=== PATIENT | male | born 1965 | race Caucasian/White ===

== ENCOUNTER 2018-03-26 16:08 | Emergency (ER) | payer OTHER ==
[2018-03-26 16:34] LABS: ADD MAN DIFF? NO
[2018-03-26 16:36] LABS: BASOPHIL # 0.1 10^3/ul (0.0-0.1); BASOPHILS % 0.6 % (0.0-2.0); EOSINOPHILS # 0.1 10^3/ul (0.0-0.5); EOSINOPHILS % 0.8 % (0.0-7.0); HEMATOCRIT 36.4 % (42.0-52.0); HEMOGLOBIN 12.6 g/dl (14.0-18.0); LYMPHOCYTES # 2.1 10^3/ul (0.8-2.9); LYMPHOCYTES % 24.7 % (15.0-51.0); MEAN CORPUSCULAR HEMOGLOBIN 34.3 pg (29.0-33.0); MEAN CORPUSCULAR HGB CONC 34.6 g/dl (32.0-37.0); MEAN CORPUSCULAR VOLUME 99.2 fl (82.0-101.0); MONOCYTE # 0.9 10^3/ul (0.3-0.9); MONOCYTES % 10.2 % (0.0-11.0); NEUTROPHIL # 5.3 10^3/ul (1.6-7.5); PLATELET COUNT 127 10^3/UL (140-415); RED BLOOD COUNT 3.67 10^6/ul (4.70-6.10); RED CELL DISTRIBUTION WIDTH 13.2 % (11.5-14.5)
[2018-03-26 16:36] LABS: WHITE BLOOD COUNT 8.5 10^3/ul (4.8-10.8)
[2018-03-26 16:55] LABS: INR 1.17; PROTIME 15.1 Sec (11.9-14.9); PT RATIO 1.2
[2018-03-26 16:56] LABS: PARTIAL THROMBOPLASTIN TIME 22.4 Sec (25.0-35.0)
[2018-03-26 16:58] LABS: ALANINE AMINOTRANSFERASE 38 IU/L (13-69); ALBUMIN 3.2 g/dl (3.3-4.9); ALBUMIN/GLOBULIN RATIO 1.14; ALKALINE PHOSPHATASE 49 IU/L (42-121); ANION GAP 21 (8-16); ASPARTATE AMINO TRANSFERASE 40 IU/L (15-46); BILIRUBIN,INDIRECT 1.3 mg/dl (0-1.1); BILIRUBIN,TOTAL 1.3 mg/dl (0.2-1.3); BLOOD UREA NITROGEN 14 mg/dl (7-20); CALCIUM 8.8 mg/dl (8.4-10.2); CARBON DIOXIDE 17 mmol/L (21-31); CHLORIDE 104 mmol/L (97-110); LIPASE 183 U/L (23-300); POTASSIUM 4.5 mmol/L (3.5-5.1); SODIUM 137 mmol/L (135-144)
[2018-03-26 17:03] LABS: GLUCOSE 502 mg/dl (70-220)
[2018-03-26] MEDS: SOD CHLORIDE 0.9% 1,000 ML IV ×2 (17:06→18:57)
[2018-03-26] MEDS: ONDANSETRON 4 MG INJ IV (17:06)
[2018-03-26 17:09] LABS: TROPONIN-I 0.011 ng/ml (0.000-0.120)
[2018-03-26] MEDS: IOHEXOL 300MG/ML 150 ML BTL (17:12)
[2018-03-26] MEDS: SOD CHLORIDE 0.9% 100 ML (17:12)
[2018-03-26 17:46] LABS: PHOSPHORUS 5.6 mg/dl (2.5-4.9)
[2018-03-26 17:46] LABS: MAGNESIUM 1.8 mg/dl (1.7-2.5)
[2018-03-26 18:04] LABS: AADO2 Arterial 33.9 mmHg (7.0-24.0); Allen Test ACCEPTAB; Arterial Base Excess -6.8 mmol/L (-3.0-3); Arterial Blood Gas Oxygen Sat 94.8 mmHG (95.0-98.0); Arterial COHb 0.1 % (0.0-3.0); Arterial Fraction of Oxyhgb 94.5 % (93.0-99.0); Arterial HCO3 17.4 mmol/L (22.0-26.0); Arterial MetHb 0.2 % (0.0-1.5); Arterial Total Hemglobin 12.9 g/dl (12.0-18.0); Arterial pCO2 31.1 mmhg (35-45); MODE ROOM AIR; Site Right Radial
[2018-03-26] MEDS: INSULIN LISPRO 100 UNIT/ML VIAL SC (18:57)
== END 2018-03-26 21:06 | disposition short-term general hospital (02) ==
LOC: E/R 16:08
DX: K74.60 Unspecified cirrhosis of liver (principal); R07.89 Other chest pain; D64.9 Anemia, unspecified; D69.6 Thrombocytopenia, unspecified; E11.65 Type 2 diabetes mellitus with hyperglycemia; E66.9 Obesity, unspecified
CPT/HCPCS: 36415; 36600; 70450; 71045; 74177; 80053; 82803; 82962; 83690; 83735; 84100; 84484; 85025; 85610; 85730; 93005; 96372; 96374; 99285-25